=== PATIENT | female | born 2000 | race Hispanic/Latino ===

== ENCOUNTER 2023-10-14 11:24 | Emergency (ER) | payer SELFPAY ==
[2023-10-14 11:30] VITALS: BP 142/92
--- NOTE | 2023-10-14 12:38 | ED.GENMED ---
History of Present Illness
General
Chief Complaint: Abdominal Symptoms
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
Exam Limitations: none
Time Seen by Provider: 10/14/23 12:18
Nursing documentation reviewed up to this point in time: agreed with
Travel History
Have you had any contact with someone who has COVID-19?: No
Do you have any symptoms of coronavirus? Fever > 100 degrees, chills, cough, shortness of breath, sore throat, loss of taste or smell, muscle aches, or headache?: No
History of Present Illness
History of Present Illness:
22-year-old female presents emergency department complaining of nausea, vomiting, epigastric abdominal pain headache. Symptoms began this morning at around 7 AM.
Past History
Past History
ED Past Medical History: HTN and Psychiatric (Anxiety)
ED Past Surgical History: None
Social History
Tobacco: Non-smoker
Alcohol: Occasional
Drug: None
Personal: Single
Living: with family
Review of Systems
Review of Systems
Allergies reviewed?: Yes
All Other Systems: Not applicable
Constitutional: Reports chills
EENT: Reports no symptoms
Respiratory: Reports no symptoms
Cardiac: Reports no symptoms
ABD/GI: Reports nausea and vomiting
: Reports no symptoms
Musculoskeletal: Reports no symptoms
Skin: Reports no symptoms
Neurological: Reports no symptoms
Endocrine: Reports no symptoms
Hematologic/Lymphatic: Reports no symptoms
Psychiatric: Reports no symptoms
Phy Exam
Physical Exam
Physical Exam:
Physical Exam
General: no apparent distress, not acutely ill
Neck: supple. no meningeal signs. normal posterior pharynx
Heart: s1/s2 regular rate and rhythm, no murmur. equal radial
pulses.
HEENT: Pupils equal round reactive to light, EOMI
Lungs: no acute respiratory distress. clear bilaterally
Abdomen: normal bowel sounds. not tender. no CVAT
Neuro: alert and oriented. no focal neurological deficits cranial nerves II through XII intact
Skin: no rash
Psychiatric: well kept. interactive and cooperative
Extremities: no edema. no calf tenderness. negative homans. good distal pulses
Course
Orders/Labs/Results
Orders:
Orders
10/14/23 12:05
EKG [Electrocardiogram (*1)] Urgent
Reason for Study: Chest Pain
EKG- Treatment ONCE
10/14/23 12:30
0.9% Sodium Chloride 1000 ml [Nss] 1,000 ml IV BOLUS
Ondansetron Injectable [Zofran] 4 mg IV NOW STA
10/14/23 12:32
IV Insert/Care/Rem.- Treatment PRN
10/14/23 12:37
Test Result ONCE
10/14/23 12:39
Complete Blood Count/With Diff Urgent
Comprehensive Metabolic Panel Urgent
HCG, Serum Qualitative Screen Urgent
Lipase Urgent
10/14/23 13:29
US Abdomen Complete/Upper Urgent
Comment:
Reason For Exam: n/v epigastric pain
Abnormal Lab Results
10/14/23
12:39
Chloride 110 H mmol/L
(98-107)
Creatinine 0.5 L mg/dL
(0.6-1.0)
AST 117 H U/L
(14-36)
ALT 184 H U/L
(0-35)
10/14/23 12:39
10/14/23 12:39
Vital Signs
Initial and Last Documented VS:
Initial Vital Signs
Temp Pulse Resp BP Pulse Ox
98.7 F 109 18 142/92 100
10/14/23 11:30 10/14/23 11:30 10/14/23 11:30 10/14/23 11:30 10/14/23 11:30
Last Documented Vital Signs
Temp Pulse Resp BP Pulse Ox
98.7 F 68 18 114/68 100
10/14/23 11:30 10/14/23 15:12 10/14/23 11:30 10/14/23 15:12 10/14/23 11:30
MDM/Problems Addressed
Differential Diagnosis Includes:
Cholecystitis, gastroenteritis
MDM/Problems Addressed:
22-year-old female with nausea vomiting, likely viral cause. Abdomen exam benign. hCG negative. Ultrasound no acute findings. Mild elevation in AST, ALT. Will have patient follow-up with primary care. Prescribed.
*Radiology
Radiology exam reviewed: radiology read reviewed (Ultrasound no acute findings)
*Pulse Oximetry
Patient hypoxic: no
*EKG
Interpreted by ED Provider?: Yes
EKG Intrepretation Date: 10/14/23
EKG Intrepretation Time: 12:34
Interpretation: normal
Comparison EKG: no comparison EKG present
Heart Rate: 78
Rate: normal
Rhythm: sinus
[place]: normal axis
Interval: normal interval
QRS Pattern: normal QRS
*Brush Sander Interpretation
Rate: normal
Interpretation: normal
Heart Rate: 66
Rhythm: sinus
*Critical Care Note
Total Time (30-74mins, 75-104mins- exclusive of procedures): Not Applicable
Patient Management
Social determinants of health affecting care: Living situation and Poor outpatient follow-up
Escalation/DeEscalation of care consider admission/obs:
Admit not indicated
ED Attending Note
-
Portions of this chart may have been created with voice recognition software.� Occasional wrong word or��sound alike� substitutions may have occurred due to the inherent limitations of voice recognition software.
Discharge Plan
Departure
Patient Disposition: Home (Routine Discharge)
Date of Disposition: 10/14/23
Time of Disposition: 15:47
Patient with high blood pressure during this ER visit?: No
Condition: Good
Discharge Problem:
Abdominal pain, Nausea and vomiting
Instructions: Nausea and Vomiting, Adult (DC), Abdominal Pain
Prescriptions:
New
ondansetron 4 mg tablet,disintegrating
4 mg PO Q8H PRN (Reason: nausea and vomiting) 3 Days Qty: 10 0RF
Referrals:
NONE,* [Family Provider] -
Activity Restrictions/Additional Instructions:
Regreso por cualquier inquietud. seguimiento con atencion primaria.
Interventions
Interventions:
*General Assessment Last Done: 10/14/23 13:07
*Neglect/Abuse Screening Last Done: 10/14/23 13:08
*ED COVID-19 Vaccine History Last Done: 10/14/23 12:06
KS-Fparzl-Iturcigbtl Assessment Last Done: 10/14/23 12:59
Discharge Date and Time
Print Language: GRENADIAN
[2023-10-14 12:45] LABS: % Basophils 0.8 % (0-2); % Eosinophils 0.9 % (0-6); % Immature Granulocytes 0.3 % (0-0.5); % Lymphocytes 31.1 % (20.5-51.1); % Neutrophils 60.9 % (42.2-75.2); Absolute Basophils 0.1 10^3/uL (0-0.2); Absolute Eosinophils 0.1 10^3/uL (0-0.7); Absolute Monocytes 0.4 10^3/uL (0.1-0.6); Hematocrit 41.5 % (37.0-47.0); Hemoglobin 14.1 g/dL (12.0-16.0); Mean Corpuscular Hgb 29.7 pg (27.0-31.0); Mean Corpuscular Volume 87.4 fL (81.0-99.0); Mean Platelet Volume 9.8 fL (7.4-10.4); Nucleated Red Blood Cells % 0 %; Platelet Count 347 10^3/uL (130-400); Red Blood Cell Count 4.75 10^6/uL (4.20-5.40); Red Cell Dist. Width 12.5 % (11.5-14.5); White Blood Cell Count 6.5 10^3/uL (4.8-10.8)
[2023-10-14] MEDS: ZOFRAN 4 MG IV (12:49)
[2023-10-14] MEDS: NSS 1000 IV (12:49)
[2023-10-14 13:02] LABS: HCG, Serum Qualitative Screen Negative
[2023-10-14 13:04] LABS: ALT (SGPT) 184 U/L (0-35); AST (SGOT) 117 U/L (14-36); Albumin 4.8 g/dl (3.5-5.0); Alkaline Phosphatase 113 U/L (38-126); Blood Urea Nitrogen 7 mg/dl (7-17); Calcium 9.8 mg/dl (8.4-10.2); Carbon Dioxide 23 mmol/L (22-30); Chloride 110 mmol/L (98-107); Glucose 99 mg/dl (70-99); Lipase 79 U/L (23-300); Sodium 139 mmol/L (135-145); Total Bilirubin 0.7 mg/dl (0.2-1.3); Total Protein 8.2 g/dl (6.3-8.2); eGFR > 60.00
[2023-10-14 13:43] VITALS: BP 108/65
[2023-10-14 15:12] VITALS: BP 114/68
[2023-10-14 16:19] VITALS: BP 114/68
== END 2023-10-14 16:20 | disposition home or self-care (01) ==
LOC: EMR 11:24
PROVIDERS: EMERGENCY PHYSICIAN Emergency Medicine
DX: R11.2 Nausea with vomiting, unspecified (principal); R10.13 Epigastric pain; R07.9 Chest pain, unspecified; R06.02 Shortness of breath; R51.9 Headache, unspecified; R68.83 Chills (without fever); I10 Essential (primary) hypertension; F41.9 Anxiety disorder, unspecified
CPT/HCPCS: 99284; 96374; 96361; 76700; 80053; 83690; 84703; 85025; 93005